=== PATIENT | female | born 1955 | race Caucasian/White ===

== ENCOUNTER 2019-04-13 01:17 | Emergency (ER) | payer MEDICARE, OTHER ==
[~2019-04-13] VITALS: Ht 154.9 cm; Wt 90.7 kg
--- NOTE | 2019-04-13 02:00 | NUR ---
[facility] B[facility] 4. AAOX4. NO RESP DISTRSS NOTED. BROUGHT IN ON GURDUNBAR. C/O L LEG PAIN. PER PT, PAIN HAS BEEN GOING ON FOR SINSUNDAY WORST TODAY. PT REPROTS SHARP SHOOTING PAIN FROM HER BACK DOWN THE LEG TO THE FOOT. 11/05. WAS TA BEDSIDE.
[2019-04-13] MEDS ORDERED: LORAZEPAM INJ 2 MG/ML VIAL IM ONE (03:00)
[2019-04-13] MEDS ORDERED: KETOROLAC TROMETHAMINE INJ 60 MG/2 ML VIAL IM ONE (03:00)
[2019-04-13] MEDS ORDERED: KETOROLAC TROMETHAMINE INJ 30 MG/ML VIAL ONE (03:02)
[2019-04-13] MEDS ORDERED: LORAZEPAM INJ 2 MG/ML VIAL ONE (03:02)
--- NOTE | 2019-04-13 03:47 | NUR ---
Patient discharged to home in stable condition. Written and verbal after care instructions given. Patient verbalizes understanding of instruction. Pt ambulatory with a steady gait
[2019-04-13 03:48] VITALS: BP 156/91
== END 2019-04-13 03:48 | disposition home or self-care (01) ==
LOC: ER 01:21
DX: M54.32 Sciatica, left side (principal); M79.662 Pain in left lower leg; I10 Essential (primary) hypertension; E11.9 Type 2 diabetes mellitus without complications; Z95.818 Presence of other cardiac implants and grafts; Z90.89 Acquired absence of other organs; Z98.890 Other specified postprocedural states; Z91.048 Other nonmedicinal substance allergy status
CPT/HCPCS: 73503; 96372 ×2; 99283; J1885; J2060; 73502